=== PATIENT | male | born 1955 | race Caucasian/White ===

== ENCOUNTER 2017-04-20 09:31 | Emergency (ER) | payer MEDICARE, OTHER ==
[~2017-04-20] VITALS: Ht 162.6 cm; Wt 74.8 kg
[~2017-04-20 09:31] MED LIST: ABILIFY20 MG ORAL; BETIMOL5 M2 OP; BUPROPION XL300 MG ORAL; BUSPAR10 MG PO; COLACE250 MG ORAL; CRANBERRY450 M4 PO; EFFEXOR XR150 MG ORAL; EFFEXOR XR75 MG ORAL; FLOMAX0.4 MG ORAL; GABAPENTIN600 MG ORAL; GLIPIZIDE5 MG ORAL; JANUVIA100 MG ORAL; KLONOPIN0.5 MG ORAL; LOVAZA1 GM ORAL; METOPROLOL TART25 MG ORAL; MIRTAZAPINE45 MG ORAL; MULTIVITAMINS1 EAC8 PO; MYTAB GAS80 MG PO; PRAMIPEXOLE D0.25 MG PO; PRILOSEC40 MG ORAL; PROSCAR5 MG ORAL; RITALIN5 MG ORAL; SIMVASTATIN40 MG ORAL; TRAVATAN Z5 ML OP; VITAMIN C250 MG ORAL; VITAMIN D250000 UNI1 ORAL; VITAMIN D400 INTLU ORAL; WELLBUTRIN XL150 MG ORAL
--- NOTE | 2017-04-20 09:45 | Emergency Room Report ---
History of Present Illness General Chief Complaint: Earache Source: Patient Present Illness HPI [id number] with history of schizoaffective/depression/DM with left ear decreased hearing and earwax for 6 months Denies pain, fever/chills Doesnt use Qtips Doesnt wear hearing aids No other complaints Allergies: Coded Allergies: No Known Allergies (Unverified , 03/18/13) Patient History Past Medical History: DM, psych hx Past Surgical History: none Pertinent Family History: none Social History: Denies: smoking, alcohol use, drug use Immunizations: UTD Reviewed Nursing Documentation: PMH: Agreed, PSxH: Agreed Nursing Documentation-PMH Past Medical History: No History, Except For Hx Diabetes: Yes Review of Systems All Other Systems: negative except mentioned in HPI Physical Exam Vital Signs Date Time Temp Pulse Resp B/P (MAP) Pulse Ox O2 Delivery O2 Flow Rate FiO2 04/20/17 09:40 97.7 74 18 145/78 98 Room Air Sp02 EP Interpretation: reviewed, normal General Appearance: normal inspection, well appearing, no apparent distress, alert, GCS 15, non-toxic Head: normocephalic, atraumatic Eyes: bilateral eye PERRL, bilateral eye EOMI ENT: normal ENT inspection, hearing grossly normal, normal pharynx, no angioedema, normal voice, uvula midline, moist mucus membranes, other - Bilateral L>R dried ear wax. No impacted cerumen. TMs visualized, no infection Neck: normal inspection, full range of motion, supple, no bony tend Respiratory: normal inspection, lungs clear, normal breath sounds, no respiratory distress, no retraction, no wheezing Cardiovascular #1: regular rate, rhythm, no edema Gastrointestinal: normal inspection, normal bowel sounds, non tender, soft, no guarding, no hernia Genitourinary: no CVA tenderness Musculoskeletal: normal inspection, back normal, normal range of motion, Matt' s Sign negative Neurologic: normal inspection, alert, responsive, speech normal Psychiatric: normal inspection, judgement/insight normal, mood/affect normal Skin: normal inspection, normal color, no rash Medical Decision Making Diagnostic Impression: Primary Impression: Excessive ear wax Qualified Codes: H61.23 - Impacted cerumen, bilateral ER Course Bilateral excessive ear wax buildup VSS. Afebrile No sign of otitis media or externa Rx Debrox DC home Last Vital Signs Date Time Temp Pulse Resp B/P (MAP) Pulse Ox O2 Delivery O2 Flow Rate FiO2 04/20/17 09:40 97.7 74 18 145/78 98 Room Air Status: improved Disposition: HOME, SELF-CARE Scripts Carbamide Peroxide (DEBROX) 15 Ml Drops 10 DROP BOTH EARS TWICE A DAY for 4 Days, ML 0 Refills Prov: SILVIA SUAZO M.D. 04/20/17 SILVIA SUAZO M.D. Apr 20, 2017 09:45
[2017-04-20] MEDS ORDERED: DEBROX15 M1 BOTH EARS (09:46)
[2017-04-20 09:57] VITALS: BP 145/78
[2017-04-20 10:00] VITALS: BP 145/78
[2017-06-16] MEDS ORDERED: INVOKANA300 MG PO (08:20)
[2017-06-17] MEDS ORDERED: FLONASE SENSIM9.9 ML NS (10:22)
[2017-06-17] MEDS ORDERED: MELOXICAM7.5 MG PO (10:22)
[2017-06-17] MEDS ORDERED: JANUVIA25 MG ORAL (10:22)
[2017-06-17] MEDS ORDERED: VENLAFAXINE HCL75 M2 ORAL (10:24)
[2017-06-17] MEDS ORDERED: INVOKANA100 MG PO (10:26)
[2017-06-17] MEDS ORDERED: VITAMIN (10:27)
[2017-06-17] MEDS ORDERED: VITAMIN D250000 UNI1 ORAL (10:27)
[2017-06-17] MEDS ORDERED: SIMETHICONE80 MG ORAL (10:30)
[2017-06-17] MEDS ORDERED: TRAVATAN Z5 ML OP (10:51)
[2017-06-17] MEDS ORDERED: IBUPROFEN600 MG ORAL (10:51)
[2017-06-17] MEDS ORDERED: NORCO 10-325 T1 EACH ORAL (10:52)
[2017-06-17] MEDS ORDERED: ACETAMINOPHEN-1 EAC1 ORAL (10:52)
== END 2017-04-20 10:12 | disposition home or self-care (01) ==
LOC: EMR 09:45
DX: H61.23 Impacted cerumen, bilateral (principal); E11.9 Type 2 diabetes mellitus without complications
CPT/HCPCS: 99283